=== PATIENT | female | born 1970 | race American Indian/Alaskan Native ===

== ENCOUNTER 2021-07-21 06:57 | Day surgery (SDC) | payer OTHER ==
[2021-07-19 10:09] LABS: Hematocrit 34.8 % (30.3-42.9); Hemoglobin 11.5 gm/dl (10.1-14.3); Mean Corpuscular HGB Conc 33 % (30-34); Mean Corpuscular Volume 75 fl (79-97); Platelet Count 369 K/mm3 (140-440); Red Blood Count 4.66 M/mm3 (3.65-5.03); Red Cell Distribution Width 18.9 % (13.2-15.2)
--- NOTE | 2021-07-20 20:27 | History and Physical Report ---
History of Present Illness Date of examination: 07/14/21 Date of admission: 07/21/21 Chief complaint: heavy menstrual bleeding History of present illness: Visit Type: Pre-Op CC: pre op. History of Present Illness: pt presents for pre op visit: H'scope with rylee casillas....................................................................Jasmyne Camejo July 14, 2021 9:59 AM mask, Patient denies fever, cough, shortness of breath and exposure to COVID-19. Pt here for preop for novasure ablation for menorrhagia. She is s/p embx and d&c that showed normal endometrial tissue. All risk/benefits/alternatives were d/w pt and questions were addressed and answered. Consent signed and placed on the chart. Vital Signs: Patient Profile: 51 Years Old Female LMP: 06/13/2021 Height: 65 inches Weight: 224 pounds BMI: 37.27 Temp: 97.8 degrees F BP sittin / 76 (left arm) Menstrual History: LMP (date): 06/13/2021 Current Method of Contraception: BTL Date of Last Mammogram: 07/13/2021 Date of Last Pap Smear: 12/16/2020 Past History : 2 Term Births: 2 Living Children: 2 Para: 2 [employer] History Uterine Surgery (not C/S): negative Operations: positive D&C: Tubal Ligation Hospitalizations: negative Anesthesia Complications: negative Abnormal PAP: negative Uterine Anomaly: negative DESMOND Exposure: negative Infertility: negative Infection History HIV Risk Eval: no Personal hx. of genital herpes: no Hx of STD: None Active Medications (reviewed today): IBUPROFEN 800 MG ORAL TABLET (IBUPROFEN) 1 po q6 hr prn pain LYSTEDA 650 MG ORAL TABLET (TRANEXAMIC ACID) 1300 mg 3 times daily (3900 mg/day) for up to 5 days during monthly menstruation NASAL SPRAY () Current Allergies (reviewed today): No known allergies Past Medical History: Reviewed and updated today: Negative Past Medical History Past Surgical History: Reviewed and updated today: positive D&C: Tubal Ligation Social History: Patient is single Smoking History: Patient has never smoked. Risk Factors: Smoked Tobacco Use: Never smoker Smokeless Tobacco Use: Never Passive Smoke Exposure: no HIV High Risk Behavior: no Exercise: yes Seatbelt Use: 100 % Mammogram History: Date of Last Mammogram: 07/13/2021 PAP Smear History: Date of Last PAP Smear: 12/16/2020 Colonoscopy History: Date of Last Colonoscopy: 06/21/2021 Results: Normal Alcohol Use: no Drug Use: no Review of Systems General Denies fever, chills, sweats, anorexia, fatigue, weakness, malaise, weight loss and sleep disorder. Denies nausea, vomiting, headache, swelling of legs, abdominal pain, vaginal discharge, vaginal bleeding and contractions. Complains of menorrhagia. Denies vaginal discharge, incontinence, dysuria, hematuria, urinary frequency, amenorrhea, abnormal vaginal bleeding, pelvic pain, genital sores, decreased libido, painful periods, painful sex, urinary urgency, hot flashes, vaginal dryness, vaginal itching and vaginal odor. CV Denies chest pains, palpitations, syncope, dyspnea on exertion, orthopnea, PND and peripheral edema. Resp Denies cough, dyspnea at rest, excessive sputum, hemoptysis, wheezing and pleurisy. GI Denies nausea, vomiting, diarrhea, constipation, change in bowel habits, abdominal pain, melena, hematochezia, jaundice, gas/bloating, indigestion/heartburn, dysphagia and odynophagia. Endo Denies cold intolerance, heat intolerance, polydipsia, polyphagia, polyuria and unusual weight change. Breast Denies left breast lump, right breast lump, nipple discharge, bloody discharge from nipple, breast pain, abnormal mammogram and breast enlargement. MS Denies back pain, joint pain, joint swelling, muscle cramps, muscle weakness, stiffness, arthritis, sciatica, restless legs, leg pain at night and leg pain with exertion. Derm Denies rash, itching, dryness and suspicious lesions. Neuro Denies paralysis, paresthesias, headache, seizures, tremors, vertigo, transient blindness, frequent falls, frequent headaches and difficulty walking. Psych Denies depression, anxiety, irritability and mood swings. Eyes Denies blurring, diplopia, irritation, discharge, vision loss, eye pain and photophobia. ENT Denies earache, ear discharge, tinnitus, decreased hearing, nasal congestion, nosebleeds, sore throat and hoarseness. Allergy Denies urticaria, allergic rash, hay fever and recurrent infections. Heme Denies abnormal bruising, bleeding and enlarged lymph nodes. Physical Exam Appearance: well developed, well nourished, no acute distress Other Exams Abdomen: soft, non-tender, no masses, bowel sounds normal Skin: no ulcers, xanthomas Lymph: no cervical, axillary, or inguinal adenopathy Extremities: normal alignment, no joint enlargement, crepitus, masses or tenderness; normal tone and strength Genitourinary Exam Comments: deferred until EUA Impression & Recommendations: Problem # 1: Menorrhagia/Menometrorrhagia (ICD-626.2) ([id number]) Her updated medication list for this problem includes: Ibuprofen 800 Mg Oral Tablet (Ibuprofen) ..... 1 po q6 hr prn pain Past History Past Medical History: no pertinent history Past Surgical History: other (BTL) [employer] History: abnormal PAP smear, fibroids Family/Genetic History: other (see hpi) Social history: no significant social history Medications and Allergies Allergies Allergy/AdvReac Type Severity Reaction Status Date / Time No Known Allergies Allergy Unverified 07/17/21 13:03 Home Medications Medication Instructions Recorded Confirmed Last Taken Type Iron 325 mg PO TID 07/17/21 07/17/21 Unknown History Active Meds: Active Medications Lactated Ringer's (Lactated Ringers) 1,000 mls @ 100 mls/hr IV DIRECT MIROSLAVA Stop: 07/21/21 23:59 Midazolam HCl (Midazolam 2 Mg/2 Ml Inj) 2 mg IV PREOP NR Stop: 07/21/21 23:59 - Vital Signs Vital signs: Vital Signs Temp Pulse Resp BP Pulse Ox 98.3 F 80 20 139/86 98 07/19/21 09:05 07/19/21 09:05 07/19/21 09:05 07/19/21 09:05 07/19/21 09:05 Temp Pulse Resp BP Pulse Ox 98.3 F 80 20 139/86 98 07/19/21 09:05 07/19/21 09:05 07/19/21 09:05 07/19/21 09:05 07/19/21 09:05 - Physical Exam Breasts: Positive: deferred Cardiovascular: Normal S1, Normal S2 Lungs: Positive: Clear to auscultation Abdomen: Positive: normal appearance, soft. Negative: distention, tenderness, guarding Genitourinary (Female): Positive: other (deferred until EUA) Results Result Diagrams: 07/19/21 09:10 All other labs normal. Assessment and Plan - Patient Problems (1) Menorrhagia with regular cycle Status: Acute Plan to address problem: -to OR for hysteroscopy with novasure ablation -consents signed and placed on the chart
[~2021-07-21 06:57] MED LIST: LACTATED RINGERS 1,000 ML IV SCH; MIDAZOLAM 2 MG/2 ML INJ IV NR; ceFAZolin/Water 2 GM/20 ML 2 GM/20 ML SYRINGE IV NR
[2021-07-21] MEDS ORDERED: HYDROcodone/ACETAMINOPHEN 5-325 MG TAB PO PRN (07:27)
[2021-07-21] MEDS ORDERED: ONDANSETRON 4 MG/2 ML INJ IV PRN (07:27)
[2021-07-21] MEDS ORDERED: HYDROmorphone 1 MG/1 ML INJ IV PRN (07:27)
--- NOTE | 2021-07-21 07:32 | Anesthesia Consultation ---
Anesthesia Consult and Med Hx Date of service: 07/21/21 - Airway Anesthetic Teeth Evaluation: Good ROM Head & Neck: Adequate Mental/Hyoid Distance: Adequate Mallampati Class: Class III Intubation Access Assessment: Possibly Difficult - Pre-Operative Health Status ASA Pre-Surgery Classification: ASA1 Proposed Anesthetic Plan: General - Pulmonary Hx Smoking: No Hx Respiratory Symptoms: No Hx Sleep Apnea: No (SNORES) - Cardiovascular System Hx Hypertension: No Hx Heart Attack/AMI: No - Central Nervous System CVA: No - Endocrine Hx Renal Disease: No Hx Liver Disease: No Hx Insulin Dependent Diabetes: No Hx Non-Insulin Dependent Diabetes: No Hx Thyroid Disease: No - Hematic Hx Anemia: Yes (iron supplements) - Other Systems Hx Obesity: Yes (BMI 37) - Additional Comments Anesthesia Medical History Comments: No hx anesthetic complications.
--- NOTE | 2021-07-21 07:32 | Anesthesia Day of Surgery ---
Anesthesia Day of Surgery - Day of Surgery Patient Examined: Yes Patient H&P Reviewed: Yes Patient is NPO: Yes
[2021-07-21] MEDS ORDERED: LIDOCAINE PF 100 MG/5 ML (CARDIAC SYRINGE) IV ONE (07:45)
[2021-07-21] MEDS ORDERED: fentaNYL 100 MCG/2 ML INJ ONE (07:45)
[2021-07-21] MEDS ORDERED: propofoL 200 MG/20 ML VIAL IV ONE (07:45)
[2021-07-21] MEDS ORDERED: KETAMINE/STERILE WATER 50 MG/ML SYRINGE ONE (07:45)
[2021-07-21] MEDS ORDERED: ONDANSETRON 4 MG/2 ML INJ ONE (07:46)
[2021-07-21] MEDS ORDERED: LIDOCAINE MPF (2%) 20 MG/1 ML VIAL 5 ML ONE (07:46)
[2021-07-21] MEDS ORDERED: MIDAZOLAM 2 MG/2 ML INJ ONE (07:48)
[2021-07-21] MEDS ORDERED: SODIUM CHLORIDE 0.9% IRRIG SOLN 2000 ML IR ONE (08:45)
[2021-07-21] MEDS ORDERED: KETOROLAC 30 MG/1 ML INJ ONE (08:55)
--- NOTE | 2021-07-21 09:02 | Operative Report ---
Operative Report Operative Report: Date of procedure: 07/21/2021 Pre-operative diagnosis: Menorrhagia Post-operative diagnosis: Same Procedure name(s): 1. Hysteroscopy 2. NovaSure ablation Surgeon: Brooke Weaver M.D. Printing Supervisor: QUETA Anesthesia: General EBL: Minimal Urine output: 100 cc of clear urine out prior to the onset of the procedure via straight catheterization Fluids: 450 mL Findings: Uterus sounded to approximately 12 cm endometrial cavity was noted to have fluffy appearance due to endometrial tissue. No intrauterine masses were noted on hysteroscopy. At the end of the procedure the endometrial cavity was noted to have good "burn" from the endometrial ablation. Indications: Patient presents with 1 year history of heavy menstrual bleeding. Patient does not report any bleeding between menses. Patient underwent hysteroscopy and November 2020 with tissue sample noted to be normal endometrium without any evidence of endometrial cancer or dysplasia. Decision was made to proceed with NovaSure ablation. All risk benefits and alternatives were discussed with the patient. Consents were signed and placed on the chart. Procedure: Patient was taken to the operating room where she was placed under general endotracheal anesthesia she was then prepped and draped in normal sterile fashion in dorsal lithotomy position with legs in Victor Hugo stirrups. Straight catheterization of the bladder was performed at this time. Sterile speculum was placed inside of the vagina to visualize the entire cervix. The anterior lip of the cervix was grasped with a single-tooth tenaculum and the uterus was sounded to 12 cm. The cervix was then dilated in order to allow passage of the hysteroscope. Hysteroscopy yielded the above-stated findings. The cervical length was noted to be to 6cm. The uterine cavity length was calculated to be 6 cm. The cervix was then dilated more to allow passage of the NovaSure device. With placement of the NovaSure device the cavity width was noted to be 4.5 cm. The integrity of the seal was then tested. The device did pass the testing. The power that was used for the NovaSure ablation was 136. The amount of time of the ablation was 0.59 seconds. Hysteroscopy following the ablation noted that there was adequate cauterization of the uterine cavity. All instruments were removed from the vagina and the cervix. Patient tolerated the procedure well. All counts were correct.
--- NOTE | 2021-07-21 09:02 | Short Stay Summary ---
Short Stay Documentation Date of service: 07/21/21 - History H&P: dictated Social history: no significant social history - Allergies and Medications Current Medications: Allergies No Known Allergies Allergy (Unverified 07/17/21 13:03) Home Medications Medication Instructions Recorded Confirmed Last Taken Type Iron 325 mg PO TID 07/17/21 07/17/21 Unknown History Active Medications Hydrocodone Bitart/Acetaminophen (Hydrocodone/Acetaminophen 5-325 Mg Tab) 2 each PO ONCE PRN PRN Reason: Pain, Moderate (4-6) Stop: 07/21/21 13:00 Hydromorphone HCl (Hydromorphone 1 Mg/1 Ml Inj) 0.5 mg IV Q10MIN PRN PRN Reason: Pain , Severe (7-10) Stop: 07/21/21 23:00 Lactated Ringer's (Lactated Ringers) 1,000 mls @ 100 mls/hr IV DIRECT MIROSLAVA Stop: 07/21/21 23:59 Cefazolin Sodium (Ancef/Sterile Water 2 Gm/20 Ml) 2 gm in 20 mls @ 80 mls/hr IV PREOP NR; Protocol Stop: 07/21/21 23:59 Midazolam HCl (Midazolam 2 Mg/2 Ml Inj) 2 mg IV PREOP NR Stop: 07/21/21 23:59 Ondansetron HCl (Ondansetron 4 Mg/2 Ml Inj) 4 mg IV ONCE PRN PRN Reason: Nausea And Vomiting Stop: 07/21/21 13:00 - Physical exam Breasts: deferred - Brief post op/procedure progress note Date of procedure: 07/21/21 Pre-op diagnosis: Menorrhagia Post-op diagnosis: same Procedure: Hysteroscopy NovaSure ablation Anesthesia: GETA Findings: See operative report Surgeon: GABRIELA SALDANA Estimated blood loss: minimal Pathology: none Condition: stable - Hospital course Hospital course: Patient admitted for above-stated procedure. Patient underwent above-stated procedure that was not complicated. Patient will receive recovery in the PACU. Patient was discharged home when she has met discharge criteria in the PACU. Patient will follow up in office in 1 week. - Disposition Condition at discharge: Good Disposition: 01 HOME / SELF CARE / HOMELESS - Discharge Diagnoses (1) Menorrhagia with regular cycle Status: Acute Short Stay Discharge Plan Activity: no restrictions Weight Bearing Status: Weight Bear as Tolerated Diet: regular Follow up with: DARRYL CARR, RN [Primary Care Provider] - 7 Days Prescriptions: Ibuprofen [Motrin 800 MG tab] 800 mg PO Q8HR PRN #30 tablet PRN Reason: Pain, Moderate (4-6) oxyCODONE /ACETAMINOPHEN [Percocet 5/325] 1 tab PO Q4HR #10 tab
[2021-07-21 10:13] VITALS: BP 118/76
--- NOTE | 2021-07-21 13:05 | Post Anesthesia Evaluation ---
- Post Anesthesia Evaluation Patient Participated: Yes Airway Patent: Yes Stable Respiratory Function: Yes Nausea/Vomiting: No Temp > 96.8F: Yes Pain Manageable: Yes Adequeate Hydration: Yes Anesthesia Complications: No
== END 2021-07-21 10:25 | disposition home or self-care (01) ==
LOC: OR 06:57
PROVIDERS: ATTEND Obstetrics & Gynecology
DX: N92.0 Excessive and frequent menstruation with regular cycle (principal); E66.9 Obesity, unspecified; Z87.440 Personal history of urinary (tract) infections; Z79.899 Other long term (current) drug therapy; Z98.890 Other specified postprocedural states; Z20.822 Contact with and (suspected) exposure to COVID-19
CPT/HCPCS: 36415; 58563; 84703; 85027; A4217; J0690; J1885; J2250; J2405; J2704; J3010; J3490; J7120; U0003; J2001